=== PATIENT | male | born 1995 | race African-American/Black ===

== ENCOUNTER 2024-03-09 11:16 | Emergency (ER) | payer MEDICAID ==
[~2024-03-09] VITALS: Ht 177.8 cm; Wt 86.0 kg
[2024-03-09 11:24] VITALS: O2SAT 99
[2024-03-09] MEDS: IBUPROFEN 400MG TABLET PO ONE (12:56)
[2024-03-09] MEDS: KETOROLAC 60MG/2ML VIAL IM ONE (15:45)
[2024-03-09 19:07] VITALS: BP 123/78; PULSE 68; RESP 20; TEMP 98.1
== END 2024-03-09 19:07 | disposition home or self-care (01) ==
LOC: ER 11:16
DX: S86.011A Strain of right Achilles tendon, initial encounter (principal); W18.39XA Other fall on same level, initial encounter; Y93.66 Activity, soccer; Y92.89 Other specified places as the place of occurrence of the external cause; Y99.8 Other external cause status
CPT/HCPCS: 29515; 96372; 99283; J1885; Z7610